=== PATIENT | female | born 1975 | race African-American/Black ===

== ENCOUNTER 2016-12-05 14:28 | Emergency (ER) | payer SELFPAY ==
[~2016-12-05] VITALS: Ht 157.5 cm; Wt 91.0 kg
[2016-12-05 14:43] VITALS: BP 121/79
== END 2016-12-05 18:53 | disposition home or self-care (01) ==
LOC: ER 18:00
DX: S16.1XXA Strain of muscle, fascia and tendon at neck level, initial encounter (principal); M25.512 Pain in left shoulder; M54.5 Low back pain; Z98.890 Other specified postprocedural states; W22.8XXA Striking against or struck by other objects, initial encounter; Y93.89 Activity, other specified; Y92.89 Other specified places as the place of occurrence of the external cause; Y99.8 Other external cause status
CPT/HCPCS: 99283

== ENCOUNTER 2017-03-30 18:39 | Emergency (ER) | payer SELFPAY ==
[~2017-03-30] VITALS: Ht 157.5 cm; Wt 110.0 kg
[2017-03-30] MEDS ORDERED: KETOROLAC 60MG/2ML VIAL IM ONE (20:30)
[2017-03-30 20:55] VITALS: BP 133/74
== END 2017-03-30 21:32 | disposition home or self-care (01) ==
LOC: ER 18:39
DX: R06.02 Shortness of breath (principal); Z98.890 Other specified postprocedural states
CPT/HCPCS: 71010; 81025; 96372; 99283; J1885

== ENCOUNTER 2017-08-23 20:22 | Emergency (ER) | payer MEDICAID ==
[~2017-08-23] VITALS: Ht 157.5 cm; Wt 104.0 kg
[2017-08-24 00:45] VITALS: BP 140/79
== END 2017-08-24 01:00 | disposition home or self-care (01) ==
LOC: ER 20:22
DX: M10.9 Gout, unspecified (principal)
CPT/HCPCS: 99282

== ENCOUNTER 2018-09-02 09:25 | Emergency (ER) | payer OTHER ==
[~2018-09-02] VITALS: Ht 160 cm; Wt 100.0 kg
[2018-09-02 12:25] VITALS: BP 118/72
== END 2018-09-02 14:10 | disposition home or self-care (01) ==
LOC: ER 09:25
DX: O26.891 Other specified pregnancy related conditions, first trimester (principal); Z3A.09 9 weeks gestation of pregnancy; Z98.890 Other specified postprocedural states
CPT/HCPCS: 69209; 99282; X7700; 99281

== ENCOUNTER 2020-01-21 07:22 | Emergency (ER) | payer MEDICAID, OTHER ==
[~2020-01-21] VITALS: Ht 160 cm; Wt 100.0 kg
[2020-01-21 08:23] LABS: CLARITY URINE CLOUDY (CLEAR); COLOR URINE YELLOW (YELLOW); KETONES URINE NEGATIVE (NEGATIVE); LEUKOCYTE ESTERASE URINE 3+ (NEGATIVE); NITRITE URINE NEGATIVE (NEGATIVE); OCCULT BLOOD URINE 3+ (NEGATIVE); PH URINE 5.5 (4.5-8.0); PROTEIN URINE NEGATIVE (NEGATIVE); SPECIFIC GRAVITY URINE 1.015 (1.005-1.030); UROBILINOGEN URINE 0.2 E.U./dL (0.2-1.0)
[2020-01-21] MEDS ORDERED: KETOROLAC 30MG/ML VIAL IV ONE (09:15)
[2020-01-21 09:19] VITALS: BP 154/72
== END 2020-01-21 09:18 | disposition home or self-care (01) ==
LOC: ER 07:22
DX: N39.0 Urinary tract infection, site not specified (principal); Z98.890 Other specified postprocedural states
CPT/HCPCS: 81003; 81025; 87077; 87086; 87186; 96374; 99283; J1885

== ENCOUNTER 2020-01-28 07:07 | Emergency (ER) | payer MEDICAID ==
[~2020-01-28] VITALS: Ht 170.2 cm; Wt 86.0 kg
[2020-01-28 07:34] VITALS: BP 128/70
[2020-01-28] MEDS ORDERED: ACETAMINOPHEN 325MG TABLET PO ONE (08:00)
[2020-01-28 08:30] LABS: CLARITY URINE CLEAR (CLEAR); COLOR URINE YELLOW (YELLOW); KETONES URINE NEGATIVE (NEGATIVE); LEUKOCYTE ESTERASE URINE NEGATIVE (NEGATIVE); NITRITE URINE NEGATIVE (NEGATIVE); OCCULT BLOOD URINE NEGATIVE (NEGATIVE); PH URINE 5.5 (4.5-8.0); PROTEIN URINE NEGATIVE (NEGATIVE); SPECIFIC GRAVITY URINE 1.013 (1.005-1.030); UROBILINOGEN URINE 0.2 E.U./dL (0.2-1.0)
== END 2020-01-28 08:59 | disposition home or self-care (01) ==
LOC: ER 07:07
DX: N39.0 Urinary tract infection, site not specified (principal); R30.0 Dysuria
CPT/HCPCS: 81003; 99283

== ENCOUNTER 2020-04-16 07:32 | Emergency (ER) | payer OTHER, MEDICAID ==
[~2020-04-16] VITALS: Ht 157.5 cm; Wt 79.0 kg
[2020-04-16 09:02] LABS: CLARITY URINE CLEAR (CLEAR); COLOR URINE YELLOW (YELLOW); KETONES URINE NEGATIVE (NEGATIVE); LEUKOCYTE ESTERASE URINE NEGATIVE (NEGATIVE); NITRITE URINE NEGATIVE (NEGATIVE); OCCULT BLOOD URINE NEGATIVE (NEGATIVE); PROTEIN URINE NEGATIVE (NEGATIVE); SPECIFIC GRAVITY URINE 1.014 (1.005-1.030); UROBILINOGEN URINE 0.2 E.U./dL (0.2-1.0)
[2020-04-16 09:14] VITALS: BP 149/77
== END 2020-04-16 09:15 | disposition home or self-care (01) ==
LOC: ER 07:42
DX: H00.12 Chalazion right lower eyelid (principal); H01.002 Unspecified blepharitis right lower eyelid; S90.822A Blister (nonthermal), left foot, initial encounter; S90.821A Blister (nonthermal), right foot, initial encounter; M79.672 Pain in left foot; M79.671 Pain in right foot; X58.XXXA Exposure to other specified factors, initial encounter; Y93.9 Activity, unspecified; Y92.9 Unspecified place or not applicable
CPT/HCPCS: 71045; 81003; 81025; 99284

== ENCOUNTER 2020-07-10 06:44 | Emergency (ER) | payer OTHER, MEDICAID ==
[~2020-07-10] VITALS: Ht 157.5 cm; Wt 100.0 kg
[2020-07-10 07:26] VITALS: BP 146/91
== END 2020-07-10 07:27 | disposition home or self-care (01) ==
LOC: ER 06:44
DX: H92.03 Otalgia, bilateral (principal); Z98.890 Other specified postprocedural states
CPT/HCPCS: 99281

== ENCOUNTER 2020-07-30 09:39 | Emergency (ER) | payer MEDICAID, OTHER ==
[~2020-07-30] VITALS: Ht 160 cm; Wt 100.0 kg
[2020-07-30] MEDS ORDERED: ACETAMINOPHEN 325MG TABLET PO ONE (10:15)
[2020-07-30 11:03] LABS: CLARITY URINE CLEAR (CLEAR); COLOR URINE YELLOW (YELLOW); KETONES URINE NEGATIVE (NEGATIVE); LEUKOCYTE ESTERASE URINE NEGATIVE (NEGATIVE); NITRITE URINE NEGATIVE (NEGATIVE); OCCULT BLOOD URINE NEGATIVE (NEGATIVE); PH URINE 7.5 (4.5-8.0); PROTEIN URINE NEGATIVE (NEGATIVE); SPECIFIC GRAVITY URINE 1.013 (1.005-1.030); UROBILINOGEN URINE 0.2 E.U./dL (0.2-1.0)
[2020-07-30 11:48] VITALS: BP 133/82
== END 2020-07-30 12:48 | disposition home or self-care (01) ==
LOC: ER 10:05
DX: H92.02 Otalgia, left ear (principal); Z98.890 Other specified postprocedural states
CPT/HCPCS: 81003; 81025; 99283

== ENCOUNTER 2020-09-08 19:46 | Emergency (ER) | payer OTHER ==
[~2020-09-08] VITALS: Ht 157.5 cm; Wt 115.0 kg
[2020-09-08 20:00] VITALS: BP 159/86
== END 2020-09-08 20:35 | disposition home or self-care (01) ==
LOC: ER 19:46
DX: Z20.822 Contact with and (suspected) exposure to COVID-19 (principal)
CPT/HCPCS: 99283; C9803; U0003

== ENCOUNTER 2021-04-30 07:03 | Emergency (ER) | payer MEDICAID, OTHER ==
[~2021-04-30] VITALS: Ht 157.5 cm; Wt 104.0 kg
[2021-04-30 08:54] VITALS: BP 158/74
[2021-04-30] MEDS ORDERED: LIDOCAINE 5% PATCH TOP SCH (09:00)
[2021-04-30] MEDS ORDERED: BACL-141 MT (09:46)
[2021-04-30] MEDS ORDERED: ACET-2708 MT (09:46)
[2021-04-30] MEDS ORDERED: GUAI600T26 MT (09:46)
[2021-04-30] MEDS ORDERED: LIDO700A15 TP (09:46)
[2021-04-30] MEDS ORDERED: IBUP-2029 MT (09:46)
[2021-04-30] MEDS ORDERED: TETANUS, DIPHTHERIA, PERTUSSIS VAC/PF 0.5ML (>7YR OLD) IM ONE (10:00)
== END 2021-04-30 09:57 | disposition home or self-care (01) ==
LOC: ER 07:12
DX: S39.012A Strain of muscle, fascia and tendon of lower back, initial encounter (principal); S80.02XA Contusion of left knee, initial encounter; J32.9 Chronic sinusitis, unspecified; R09.81 Nasal congestion; Z98.890 Other specified postprocedural states; Z79.899 Other long term (current) drug therapy; W18.39XA Other fall on same level, initial encounter; Y93.89 Activity, other specified; Y92.89 Other specified places as the place of occurrence of the external cause; Y99.8 Other external cause status
CPT/HCPCS: 73562; 81025; 90471; 90715; 99283; Z7610

== ENCOUNTER 2021-05-03 15:32 | Emergency (ER) | payer MEDICAID ==
[~2021-05-03] VITALS: Ht 157.5 cm; Wt 105.0 kg
[~2021-05-03 15:32] MED LIST: ACET-2708 MT; BACL-141 MT; GUAI600T26 MT; IBUP-2029 MT; LIDO700A15 TP
[2021-05-03 16:06] VITALS: BP 164/91
[2021-05-03] MEDS ORDERED: CEPH500C2 MT (17:54)
[2021-05-03] MEDS ORDERED: IBUP-2028 MT (17:54)
[2021-05-03] MEDS ORDERED: FLUT9.9S BOTHNSTRLS (17:54)
== END 2021-05-03 18:37 | disposition home or self-care (01) ==
LOC: ER 15:32
DX: L02.412 Cutaneous abscess of left axilla (principal); H68.109 Unspecified obstruction of Eustachian tube, unspecified ear; M54.5 Low back pain; E66.9 Obesity, unspecified; Z68.41 Body mass index [BMI] 40.0-44.9, adult; Z98.890 Other specified postprocedural states
CPT/HCPCS: 99283

== ENCOUNTER 2021-05-08 17:55 | Emergency (ER) | payer MEDICAID ==
[~2021-05-08] VITALS: Ht 165.1 cm; Wt 71299.0 kg
[~2021-05-08 17:55] MED LIST changes: +CEPH500C2 MT; +FLUT9.9S BOTHNSTRLS; +IBUP-2028 MT
[2021-05-08] MEDS ORDERED: KETOROLAC 30MG/ML VIAL IM STA (19:26)
[2021-05-08] MEDS ORDERED: CLIN-116 PO ×2 (20:25→20:32)
[2021-05-08] MEDS ORDERED: HYDR-4001 MT (20:26)
[2021-05-08 20:41] VITALS: BP 113/70
== END 2021-05-08 20:42 | disposition home or self-care (01) ==
LOC: ER 17:55
DX: M54.5 Low back pain (principal); N18.9 Chronic kidney disease, unspecified; Z98.890 Other specified postprocedural states
CPT/HCPCS: 72100; 96372; 99283; J1885; Z7610

== ENCOUNTER 2021-10-01 12:36 | Emergency (ER) | payer MEDICAID, OTHER ==
[~2021-10-01] VITALS: Ht 157.5 cm; Wt 107.0 kg
[~2021-10-01 12:36] MED LIST changes: +CLIN-116 PO; +HYDR-4001 MT
[2021-10-01] MEDS ORDERED: IBUPROFEN 600MG TABLET PO ONE (14:15)
[2021-10-01 14:34] LABS: CLARITY URINE CLOUDY (CLEAR); COLOR URINE RED (YELLOW); KETONES URINE NEGATIVE (NEGATIVE); LEUKOCYTE ESTERASE URINE 1+ (NEGATIVE); NITRITE URINE NEGATIVE (NEGATIVE); OCCULT BLOOD URINE 3+ (NEGATIVE); PH URINE 8.5 (4.5-8.0); PROTEIN URINE 2+ (NEGATIVE); SPECIFIC GRAVITY URINE 1.011 (1.005-1.030); UROBILINOGEN URINE 0.2 E.U./dL (0.2-1.0)
[2021-10-01] MEDS ORDERED: NITR-87 MT (15:19)
[2021-10-01] MEDS ORDERED: FLUC150T5 MT (15:19)
[2021-10-01] MEDS ORDERED: OFLO5DRO4 EACH EAR (15:19)
[2021-10-01 15:24] VITALS: BP 142/67
== END 2021-10-01 15:24 | disposition home or self-care (01) ==
LOC: ER 12:36
DX: N39.0 Urinary tract infection, site not specified (principal); H92.03 Otalgia, bilateral; Z98.890 Other specified postprocedural states; Z79.899 Other long term (current) drug therapy
CPT/HCPCS: 81003; 81025; 87210; 99283

== ENCOUNTER 2021-10-06 16:34 | Emergency (ER) | payer MEDICAID, OTHER ==
[~2021-10-06] VITALS: Ht 157.5 cm; Wt 104.0 kg
[~2021-10-06 16:34] MED LIST changes: +FLUC150T5 MT; +NITR-87 MT; +OFLO5DRO4 EACH EAR
[2021-10-06 16:41] VITALS: BP 169/82
[2021-10-06] MEDS ORDERED: LIDOCAINE HCL 1% 20ML VIAL (Pyxis) INJ INFIL ONE (17:45)
[2021-10-06] MEDS ORDERED: CEFTRIAXONE SODIUM 500 MG/VIAL IM ONE (17:45)
[2021-10-06] MEDS ORDERED: DOXY100C5 MT (18:08)
[2021-10-11 04:08] LABS: NEISSERIA GONORRHOEAE NAA Negative (Negative)
== END 2021-10-06 18:27 | disposition home or self-care (01) ==
LOC: ER 16:34
DX: N39.0 Urinary tract infection, site not specified (principal); Z79.899 Other long term (current) drug therapy; Z98.890 Other specified postprocedural states
CPT/HCPCS: 87491; 87591; 96372; 99283; J0696; J3490

== ENCOUNTER 2021-10-16 17:40 | Emergency (ER) | payer OTHER ==
[~2021-10-16] VITALS: Ht 157.5 cm; Wt 107.0 kg
[~2021-10-16 17:40] MED LIST changes: +DOXY100C5 MT
[2021-10-16 17:47] VITALS: BP 159/91
[2021-10-16] MEDS ORDERED: NITR-87 MT (18:59)
[2021-10-16] MEDS ORDERED: BACL-141 MT (18:59)
[2021-10-16 19:13] LABS: CLARITY URINE CLEAR (CLEAR); COLOR URINE YELLOW (YELLOW); KETONES URINE NEGATIVE (NEGATIVE); LEUKOCYTE ESTERASE URINE NEGATIVE (NEGATIVE); NITRITE URINE NEGATIVE (NEGATIVE); OCCULT BLOOD URINE NEGATIVE (NEGATIVE); PH URINE 5.5 (4.5-8.0); PROTEIN URINE NEGATIVE (NEGATIVE); SPECIFIC GRAVITY URINE 1.017 (1.005-1.030); UROBILINOGEN URINE 0.2 E.U./dL (0.2-1.0)
== END 2021-10-16 19:17 | disposition home or self-care (01) ==
LOC: ER 17:40
DX: N39.0 Urinary tract infection, site not specified (principal); M26.69 Other specified disorders of temporomandibular joint; H92.02 Otalgia, left ear; Z98.890 Other specified postprocedural states; Z88.0 Allergy status to penicillin
CPT/HCPCS: 81003; 81025; 99283

== ENCOUNTER 2021-12-23 13:03 | Emergency (ER) | payer OTHER ==
[~2021-12-23] VITALS: Ht 157.5 cm; Wt 107.0 kg
[2021-12-23 13:05] VITALS: BP 140/72
[2021-12-23] MEDS ORDERED: KETOROLAC 30MG/ML VIAL IM ONE (13:30)
[2021-12-23] MEDS ORDERED: NAPR-1176 MT (14:00)
== END 2021-12-23 14:46 | disposition home or self-care (01) ==
LOC: ER 13:03
DX: M79.18 Myalgia, other site (principal); Z88.0 Allergy status to penicillin; Z98.890 Other specified postprocedural states
CPT/HCPCS: 71045; 96372; 99283; J1885

== ENCOUNTER 2022-02-01 07:17 | Emergency (ER) | payer OTHER ==
[~2022-02-01] VITALS: Ht 157.5 cm; Wt 104.0 kg
[~2022-02-01 07:17] MED LIST changes: +FLUC150T46 MT; -FLUC150T5 MT; +NAPR-1176 MT
[2022-02-01 07:32] VITALS: BP 132/81
== END 2022-02-01 10:29 | disposition left against medical advice (07) ==
LOC: ER 07:17
DX: R30.0 Dysuria (principal); Z88.0 Allergy status to penicillin; Z98.890 Other specified postprocedural states
CPT/HCPCS: 99281

== ENCOUNTER 2022-05-06 06:50 | Emergency (ER) | payer OTHER ==
[~2022-05-06] VITALS: Ht 157.5 cm; Wt 112.9 kg
[2022-05-06 10:31] LABS: CLARITY URINE CLEAR (CLEAR); COLOR URINE DARK YELLOW (YELLOW); KETONES URINE NEGATIVE (NEGATIVE); LEUKOCYTE ESTERASE URINE NEGATIVE (NEGATIVE); NITRITE URINE POSITIVE (NEGATIVE); OCCULT BLOOD URINE 1+ (NEGATIVE); PH URINE 6.5 (4.5-8.0); PROTEIN URINE NEGATIVE (NEGATIVE); SPECIFIC GRAVITY URINE 1.009 (1.005-1.030)
[2022-05-06] MEDS ORDERED: CIPR-263 MT (11:22)
[2022-05-06 11:30] VITALS: BP 150/81
== END 2022-05-06 11:41 | disposition home or self-care (01) ==
LOC: ER 06:50
DX: N39.0 Urinary tract infection, site not specified (principal); H92.02 Otalgia, left ear; Z98.890 Other specified postprocedural states; Z79.899 Other long term (current) drug therapy
CPT/HCPCS: 81003; 81025; 99283

== ENCOUNTER 2022-05-13 06:19 | Emergency (ER) | payer OTHER ==
[~2022-05-13] VITALS: Ht 157.5 cm; Wt 110.0 kg
[~2022-05-13 06:19] MED LIST changes: +CIPR-263 MT
[2022-05-13 06:25] VITALS: BP 147/98
[2022-05-13] MEDS ORDERED: CARB-274 EACH EAR (08:23)
[2022-05-13] MEDS ORDERED: NITR100C MT (08:23)
[2022-05-13] MEDS ORDERED: SULF1TAB48 MT (08:23)
[2022-05-13] MEDS ORDERED: IBUP-2029 MT (08:23)
[2022-05-13] MEDS ORDERED: IBUPROFEN 600MG TABLET PO ONE (08:30)
== END 2022-05-13 08:56 | disposition home or self-care (01) ==
LOC: ER 06:19
DX: N12 Tubulo-interstitial nephritis, not specified as acute or chronic (principal); Z98.890 Other specified postprocedural states; R30.0 Dysuria; Z79.899 Other long term (current) drug therapy
CPT/HCPCS: 81025; 99283

== ENCOUNTER 2022-05-20 06:19 | Emergency (ER) | payer OTHER ==
[~2022-05-20] VITALS: Ht 162.6 cm; Wt 112.4 kg
[~2022-05-20 06:19] MED LIST changes: +CARB-274 EACH EAR; +NITR100C MT; +SULF1TAB48 MT
[2022-05-20 06:27] VITALS: BP 125/69
[2022-05-20 07:34] LABS: CLARITY URINE CLEAR (CLEAR); COLOR URINE YELLOW (YELLOW); KETONES URINE NEGATIVE (NEGATIVE); LEUKOCYTE ESTERASE URINE NEGATIVE (NEGATIVE); NITRITE URINE NEGATIVE (NEGATIVE); OCCULT BLOOD URINE NEGATIVE (NEGATIVE); PH URINE 6.5 (4.5-8.0); PROTEIN URINE NEGATIVE (NEGATIVE); SPECIFIC GRAVITY URINE 1.012 (1.005-1.030); UROBILINOGEN URINE 0.2 E.U./dL (0.2-1.0)
[2022-05-20] MEDS ORDERED: CEPH500C2 MT (09:11)
== END 2022-05-20 09:23 | disposition home or self-care (01) ==
LOC: ER 06:44
DX: R10.9 Unspecified abdominal pain (principal); Z87.440 Personal history of urinary (tract) infections; Z98.890 Other specified postprocedural states; Z79.899 Other long term (current) drug therapy
CPT/HCPCS: 81003; 81025; 99283

== ENCOUNTER 2022-07-22 08:08 | Emergency (ER) | payer OTHER ==
[~2022-07-22] VITALS: Ht 162.6 cm; Wt 75.0 kg
[2022-07-22 08:11] VITALS: BP 174/93
[2022-07-22 12:56] LABS: CLARITY URINE CLEAR (CLEAR); COLOR URINE YELLOW (YELLOW); KETONES URINE NEGATIVE (NEGATIVE); LEUKOCYTE ESTERASE URINE NEGATIVE (NEGATIVE); NITRITE URINE NEGATIVE (NEGATIVE); OCCULT BLOOD URINE NEGATIVE (NEGATIVE); PROTEIN URINE NEGATIVE (NEGATIVE); SPECIFIC GRAVITY URINE 1.011 (1.005-1.030); UROBILINOGEN URINE 0.2 E.U./dL (0.2-1.0)
[2022-07-22] MEDS ORDERED: BENZ100C86 MT (13:19)
== END 2022-07-22 14:52 | disposition home or self-care (01) ==
LOC: ER 08:15
DX: B34.9 Viral infection, unspecified (principal); N72 Inflammatory disease of cervix uteri; Z87.440 Personal history of urinary (tract) infections; Z98.890 Other specified postprocedural states; Z79.899 Other long term (current) drug therapy
CPT/HCPCS: 81003; 81025; 87210; 99283; Z7610

== ENCOUNTER 2022-09-13 17:29 | Emergency (ER) | payer OTHER ==
[~2022-09-13] VITALS: Ht 157.5 cm; Wt 109.0 kg
[~2022-09-13 17:29] MED LIST changes: +BENZ100C86 MT
[2022-09-13 17:52] VITALS: BP 139/69
[2022-09-13 19:25] LABS: EOSINOPHILS % 3.8 % (0.0-5.0); HEMATOCRIT. 33.2 % (36.0-48.0); LYMPHOCYTES % 21.1 % (20.0-50.0); MEAN CORPUSCULAR HEMOGLOBIN 24.2 pg (28.0-32.0); MEAN CORPUSCULAR VOLUME 73.1 fL (81.0-99.0); MEAN PLATELET VOLUME 8.3 fl (7.4-10.4); MONOCYTES % 5.1 % (2.0-8.0); PLATELET 363 x1000/uL (130-400); RED BLOOD CELL COUNT 4.54 mill/uL (4.2-5.4); RED CELL DISTRIBUTION WIDTH 15.4 % (11.6-14.6)
[2022-09-13 19:32] LABS: CLARITY URINE CLOUDY (CLEAR); COLOR URINE YELLOW (YELLOW); KETONES URINE NEGATIVE (NEGATIVE); LEUKOCYTE ESTERASE URINE 2+ (NEGATIVE); NITRITE URINE NEGATIVE (NEGATIVE); OCCULT BLOOD URINE 2+ (NEGATIVE); PROTEIN URINE TRACE (NEGATIVE); SPECIFIC GRAVITY URINE 1.011 (1.005-1.030); UROBILINOGEN URINE 0.2 E.U./dL (0.2-1.0)
[2022-09-13 19:34] LABS: CHLORIDE 105 mEq/L (98-107)
[2022-09-13 19:56] LABS: B-HCG QUANTITATIVE 3598 mIU/mL (<3)
[2022-09-13] MEDS ORDERED: NITR-87 MT (21:58)
== END 2022-09-13 22:10 | disposition home or self-care (01) ==
LOC: ER 17:29
DX: O26.891 Other specified pregnancy related conditions, first trimester (principal); O20.0 Threatened abortion; O23.41 Unspecified infection of urinary tract in pregnancy, first trimester; N39.0 Urinary tract infection, site not specified; O90.81 Anemia of the puerperium; D50.9 Iron deficiency anemia, unspecified; Z3A.01 Less than 8 weeks gestation of pregnancy; Z88.0 Allergy status to penicillin; Z87.440 Personal history of urinary (tract) infections; Z98.890 Other specified postprocedural states
CPT/HCPCS: 36415; 76801; 80053; 81003; 81025; 84702; 85025; 86850; 86900; 99284